=== PATIENT | female | born 2000 | race Hispanic/Latino ===

== ENCOUNTER 2019-01-07 00:16 | Inpatient (IN) ==
[2019-01-07 00:38] LABS: URINE SOURCE VOIDED
[2019-01-07 00:49] LABS: BILIRUBIN URINE NEGATIVE (NEGATIVE); BLOOD URINE 1+ (NEGATIVE); CLARITY SL. CLOUDY (CLEAR); COLOR YELLOW; GLUCOSE URINE NEGATIVE (NEGATIVE); KETONE URINE NEGATIVE (NEGATIVE); LEUKOCYTES URINE 2+ (NEGATIVE); NITRITE URINE NEGATIVE (NEGATIVE); PROTEIN URINE NEGATIVE (NEGATIVE); UROBILINOGEN URINE NORMAL
[2019-01-07] MEDS ORDERED: PEPCID IV PRN (01:11)
[2019-01-07] MEDS ORDERED: PEPCID PO PRN ×2 (01:11)
[2019-01-07] MEDS ORDERED: TYLENOL PO PRN (01:11)
[2019-01-07] MEDS ORDERED: KEFZOL 1 GM/D5W 1 GM/50 ML IVPB IV PRN (01:11)
[2019-01-07] MEDS ORDERED: ZOFRAN IV PRN (01:11)
[2019-01-07] MEDS ORDERED: STADOL IV PRN (01:11)
[2019-01-07] MEDS ORDERED: REGLAN PO PRN (01:11)
[2019-01-07] MEDS ORDERED: SODIUM CHLORIDE 0.9% INJ SCH (01:15)
[2019-01-07] MEDS ORDERED: LR 1,000 ML IV SCH (01:15)
[2019-01-07] MEDS ORDERED: PITOCIN 30 UNITS/NS 30 UNIT/500 ML IV.SOLN IV SCH ×2 (01:15→03:00)
[2019-01-07] MEDS ORDERED: MINERAL OIL TOP PRN (01:20)
[2019-01-07] MEDS ORDERED: XYLOCAINE-MPF 1% INJ PRN ×2 (01:20→02:48)
[2019-01-07] MEDS ORDERED: AMPICILLIN 2 GM/NS 2 GM/100 ML IVPB IV ONE (01:23)
[2019-01-07 01:51] LABS: UR AMPHETAMINES QUAL NONE DETECTED (NONE DETECT); UR BARBITUATES QUAL NONE DETECTED (NONE DETECT); UR BENZODIAZEPIN QUAL NONE DETECTED (NONE DETECT); UR CANNABINOIDS QUAL NONE DETECTED (NONE DETECT); UR COCAINE QUAL NONE DETECTED (NONE DETECT); UR METHADONE QUAL NONE DETECTED (NONE DETECT); UR METHAMPHETAMINE QUAL NONE DETECTED (NONE DETECT); UR OPIATES QUAL NONE DETECTED (NONE DETECT); UR OXYCODONE QUAL NONE DETECTED (NONE DETECT); UR PCP QUAL NONE DETECTED (NONE DETECT); UR PROPOXYPHENE QUAL NONE DETECTED (NONE DETECT); UR TCA QUAL NONE DETECTED (NONE DETECT)
[2019-01-07 02:11] LABS: BASO# 0.04 X1000 (0.0-0.2); BASO% 0.3 % (0.0-0.8); EOS# 0.14 X1000 (0.0-0.7); EOS% 1.1 % (0.0-10.0); HEMATOCRIT 30.5 % (37.0-47.0); HEMOGLOBIN 9.5 g/dL (12.0-16.0); IMM GRAN# 0.04 X1000 (0.0-0.04); IMM GRAN% 0.3 % (0.0-0.5); LYMPH# 3.18 X1000 (1.2-3.4); LYMPH% 25.6 % (20.5-51.1); MCH 20.3 PG (27-31); MCHC 31.1 g/dL (33-37); MCV 65.2 FL (81-99); MONO# 0.58 X1000 (0.11-0.59); MONO% 4.7 % (1.7-9.3); MPV 10.7 FL (7.4-10.4); NEUT# 8.43 X1000 (1.4-6.5); PLT 332 X1000 (130-400); RBC 4.68 XMIL (4.2-5.4); RDW 18.9 % (11.5-14.5); WBC 12.41 X1000 (4.8-10.8)
--- NOTE | 2019-01-07 02:33 | OB/GYN PROGRESS NOTE ---
Progress Note OB - . OB Progress Note: Vital Signs - 24 hr 01/07/19 00:30 Temperature 96.9 F L Pulse Rate 75 Respiratory Rate 18 Blood Pressure 132/77 O2 Sat by Pulse Oximetry 100 Laboratory Results - last 24 hr 01/07/19 01/07/19 01/07/19 00:25 00:25 01:50 WBC 12.41 H RBC 4.68 Hgb 9.5 L Hct 30.5 L MCV 65.2 L MCH 20.3 L MCHC 31.1 L RDW Std Deviation 18.9 H Plt Count 332 MPV 10.7 H Immature Gran % (Auto) 0.3 Neut % (Auto) 68.0 Lymph % (Auto) 25.6 [place] % (Auto) 4.7 Eos % (Auto) 1.1 Baso % (Auto) 0.3 Immature Gran # (Auto) 0.04 Neut # (Auto) 8.43 H Lymph # (Auto) 3.18 [place] # (Auto) 0.58 Eos # (Auto) 0.14 Baso # (Auto) 0.04 Urine Source VOIDED Urine Color YELLOW Urine Clarity SL. CLOUDY A Urine pH 6.0 Ur Specific [place] 1.010 Urine Protein NEGATIVE Urine Ketones NEGATIVE Urine Blood 1+ A Urine Nitrite NEGATIVE Urine Bilirubin NEGATIVE Urine Urobilinogen NORMAL Urine WBC 2+ A Urine Glucose NEGATIVE Urine Opiates Screen NONE DETECTED Ur Oxycodone Screen NONE DETECTED Urine Methadone Screen NONE DETECTED U Propoxyphene Qual NONE DETECTED Ur Barbituates Screen NONE DETECTED Ur Tricyclics Screen NONE DETECTED Ur Phencyclidine Scrn NONE DETECTED Ur Amphetamines Screen NONE DETECTED U Methamphetamines Scrn NONE DETECTED U Benzodiazepines Scrn NONE DETECTED Urine Cocaine Screen NONE DETECTED U Cannabinoids Screen NONE DETECTED Delivery Note Patient presented in labor and progressed quickly to being completely dilated. of LVFI weighing 7lbs and 0 ounces with apgars of 9 and 9 at 1 and 5 minutes respectively. AROM just before delivery with thick meconium. Infant suctioned on perineum. no lacerations of vaginal or cervix, no nuchal cord. EBL 150cc. placenta delivered spontanoeusly and appears intact. to nursery. mother tolerated procedure well.
[2019-01-07 02:43] LABS: ANISOCYTOSIS 1+; EOS 2 % (1-10); LYMPHS 24 % (21-51); MONO 2 % (1-9); POLYCHROM OCCASIONAL; SEGS 72 % (42-75)
[2019-01-07 02:44] LABS: HYPOCHROM 1+; MICROCYTOSIS 1+; POIKILOCYTOSIS 2+
[2019-01-07 02:45] LABS: LARGE PLATELETS OCCASIONAL; OVALOCYTES 1+; STOMATOCYTES OCCASIONAL
[2019-01-07] MEDS ORDERED: ATARAX PO PRN (02:48)
[2019-01-07] MEDS ORDERED: BENADRYL PO PRN (02:48)
[2019-01-07] MEDS ORDERED: HYDROXYZINE IM PRN (02:48)
[2019-01-07] MEDS ORDERED: AMBIEN PO PRN (02:48)
[2019-01-07] MEDS ORDERED: PITOCIN IM PRN (02:48)
[2019-01-07] MEDS ORDERED: CYTOTEC PO PRN (02:48)
[2019-01-07] MEDS ORDERED: BENADRYL IV PRN (02:48)
[2019-01-07] MEDS ORDERED: BOOSTRIX VACCINE IM ONE (02:48)
[2019-01-07] MEDS ORDERED: M-M-R II VACCINE SUBQ ONE (02:48)
[2019-01-07] MEDS ORDERED: MINERAL OIL PO PRN (02:48)
[2019-01-07] MEDS ORDERED: PERI MEDS (DERMOPLAST/NUPERCAINAL/TUCKS) MISC PRN (02:48)
[2019-01-07] MEDS ORDERED: PITOCIN 20 UNITS/NS 20 UNITS/1,000 ML IV.SOLN IV SCH (03:00)
--- NOTE | 2019-01-07 03:33 | HISTORY AND PHYSICAL ---
HISTORY OF PRESENT ILLNESS: The patient presents as a 18-year-old G5, P4-0-0-4 with an intrauterine at 39+ 3 weeks. The patient reports that she started having contractions this last night and they have worsened. She comes in this morning with complaints of being in labor. The patient reports she does have care, and goes to Dr. Peres's office, however, we would have no access to her care records. The patient denies fever, nausea, vomiting or diarrhea. On review of records in the chart and in the patient's hospital chart her tox screen is negative. RPR is nonreactive. Hepatitis B antigen is negative. Hepatitis C antibody negative. HIV negative. Gonorrhea negative. Rubella patient is not immune. FAMILY MEDICAL HISTORY: Patient reports no significant medical or surgical history. The patient is a G5, P4-0-0-4. She has 4 living children at home. PHYSICAL EXAM: VITAL SIGNS: The patient is afebrile. Vital signs are stable. GENERAL: Patient is alert, awake, oriented, in moderate distress with contractions. HEENT: Patient is normocephalic, atraumatic. CARDIOVASCULAR: S1, S2 normal. LUNGS: Clear. ABDOMEN: Patient has a gravid uterus. Positive bowel sounds. EXTREMITIES: No edema. PELVIC: Cervical exam patient was 9 cm last exam. ASSESSMENT AND PLAN: Intrauterine at 39+ 3 weeks in labor. The patient desires epidural. Not sure if we are going to be able to accommodate that request because patient is advanced in labor. Expect vaginal delivery. cc: Fallon Zepeda MD
[2019-01-07] MEDS ORDERED: AMPICILLIN 1 GM/NS 1 GM/50 ML IVPB IV SCH (05:23)
[2019-01-07] MEDS: NORCO-5 PO PRN ×2 (06:05→17:22)
[2019-01-07] MEDS: MOTRIN PO PRN (06:05)
[2019-01-07] MEDS: FERROUS SULFATE PO SCH (09:01)
[2019-01-07] MEDS: PERICOLACE PO SCH (20:09)
[2019-01-08] MEDS: MOTRIN PO PRN ×2 (05:35→16:31)
[2019-01-08] MEDS: NORCO-5 PO PRN (05:35)
[2019-01-08 06:07] LABS: BASO# 0.03 X1000 (0.0-0.2); BASO% 0.3 % (0.0-0.8); EOS# 0.23 X1000 (0.0-0.7); EOS% 2.3 % (0.0-10.0); HEMATOCRIT 30.5 % (37.0-47.0); IMM GRAN# 0.09 X1000 (0.0-0.04); IMM GRAN% 0.9 % (0.0-0.5); LYMPH# 4.28 X1000 (1.2-3.4); LYMPH% 42.1 % (20.5-51.1); MCH 19.5 PG (27-31); MCHC 29.5 g/dL (33-37); MCV 66.2 FL (81-99); MONO# 0.49 X1000 (0.11-0.59); MONO% 4.8 % (1.7-9.3); MPV 9.9 FL (7.4-10.4); NEUT# 5.04 X1000 (1.4-6.5); NEUT% 49.6 % (42.2-75.2); PLT 288 X1000 (130-400); RBC 4.61 XMIL (4.2-5.4); WBC 10.16 X1000 (4.8-10.8)
--- NOTE | 2019-01-08 08:15 | OB/GYN PROGRESS NOTE ---
Progress Note OB - . Patient Problems: Current Active Problems Problem Status Onset Multiparity Acute Late care Acute Intrauterine Acute OB Progress Note: Vital Signs - 24 hr 01/07/19 11:07 01/07/19 15:50 01/07/19 20:00 Temperature 97 F L 97.8 F 97.2 F L Pulse Rate 69 75 75 Respiratory Rate 18 18 18 Blood Pressure 128/75 145/86 133/69 O2 Sat by Pulse Oximetry 99 99 99 01/07/19 23:45 01/08/19 05:30 Temperature 96.9 F L 96.8 F L Pulse Rate 60 58 L Respiratory Rate 18 20 Blood Pressure 121/79 132/74 O2 Sat by Pulse Oximetry 99 100 Laboratory Results - last 24 hr 01/08/19 05:44 WBC 10.16 RBC 4.61 Hgb 9.0 L Hct 30.5 L MCV 66.2 L MCH 19.5 L MCHC 29.5 L RDW Std Deviation 19.0 H Plt Count 288 MPV 9.9 Immature Gran % (Auto) 0.9 H Neut % (Auto) 49.6 Lymph % (Auto) 42.1 [place] % (Auto) 4.8 Eos % (Auto) 2.3 Baso % (Auto) 0.3 Immature Gran # (Auto) 0.09 H Neut # (Auto) 5.04 Lymph # (Auto) 4.28 H [place] # (Auto) 0.49 Eos # (Auto) 0.23 Baso # (Auto) 0.03 Post note Patient reports no problems. bleeding less than menses. AFVSS General; AAO x3 in NAD HEENT: NCAT CV: S1 S2 normal Lungs: clear to auscultation Abd: fundus firm. positive bowel sounds Ext: no edema A/P PPD#1 s/p - doing well continue current care plan discharge home tomorrow.
[2019-01-08] MEDS: FERROUS SULFATE PO SCH (08:18)
[2019-01-08] MEDS: PERICOLACE PO SCH (20:23)
[2019-01-09] MEDS: MOTRIN PO PRN ×2 (02:13→09:07)
[2019-01-09 08:55] VITALS: BP 137/83
[2019-01-09] MEDS: NORCO-5 PO PRN (09:07)
[2019-01-09] MEDS: FERROUS SULFATE PO SCH (09:07)
--- NOTE | 2019-01-09 14:58 | DISCHARGE SUMMARY ---
ADMISSION DATE: 01/07/2019 DISCHARGE DATE: 01/09/2019 HISTORY: The patient was admitted as a 18-year-old G 5, P 4, with an intrauterine at term. The patient was delivered via normal spontaneous vaginal delivery of a live viable female infant. The patient's course was unremarkable and she ambulated without any difficulty and is being discharged home with follow up in 2 weeks for control. She desires Depo and in 6 weeks for regular care. EXAM: Patient is afebrile. Vital signs are stable. General: Patient is awake, alert, oriented x3, in no apparent distress. HEENT: Patient is normocephalic, atraumatic. Cardiovascular: S1, S2 normal. Lungs: Clear. Abdomen: Fundus is firm, about 3 cm below the umbilicus. Extremities: No edema. ASSESSMENT AND PLAN: day #1 sorry status post normal spontaneous vaginal delivery. Of note, patient has given up her child for adoption. The patient is being discharged home in stable condition to follow up in 2 weeks for Depo-Provera and in 6 weeks for care. She has been discharged home with medications, Motrin for pain and she is to continue her vitamins. cc: Fallon Zepeda MD
== END 2019-01-09 11:30 | disposition home or self-care (01) | DRG 806 ==
LOC: P.OPLD 00:16 → P.LD 00:17
PROVIDERS: ADMIT Obstetrics & Gynecology; ATTEND Obstetrics & Gynecology
CPT/HCPCS: 59025; 80104; 80301; 80305; 81003; 85025; 86592; 90707; A9270; G0431; G0434; G0477; J0290; J0595; J2590; J7120